=== PATIENT | male | born 1990 | race Caucasian/White ===

== ENCOUNTER 2019-04-06 18:14 | Emergency (ER) | payer SELFPAY ==
[~2019-04-06] VITALS: Ht 172.7 cm; Wt 77.1 kg
[2019-04-06 18:32] VITALS: BP 125/74
== END 2019-04-06 18:40 | disposition left against medical advice (07) ==
LOC: ER 18:18
DX: R51 Headache (principal); Z53.21 Procedure and treatment not carried out due to patient leaving prior to being seen by health care provider